=== PATIENT | female | born 1990 | race Caucasian/White ===

== ENCOUNTER 2024-04-14 06:34 | Day surgery (SDC) | payer OTHER ==
[2024-04-14 06:28] LABS: Sqamous Epithelial <5 /HPF (None Seen); Urine Bacteria 20-50 /HPF (<20); Urine Bilirubin NEGATIVE (Negative); Urine Blood Negative (Negative); Urine Clarity Turbid (Clear); Urine Color Yellow (Yellow); Urine Culture Reflex Order REFLEXED; Urine Glucose NEGATIVE (Negative); Urine Ketones NEGATIVE (Negative); Urine Microscopic Reflex YN ORDER UMIC; Urine Mucus 4+ /HPF (None Seen); Urine Nitrite NEGATIVE (Negative); Urine Protein TRACE (Negative); Urine RBC <5 /HPF (None Seen); Urine Urobilinogen Normal (Normal)
[2024-04-14] MEDS ORDERED: Ringers Lactate 1,000 ML IV ONE (06:35)
[2024-04-14 06:44] LABS: Absolute Eosinophils 0.1 K/uL (0-0.5); Absolute Monocytes 0.4 K/uL (0.1-1.3); Absolute Neutrophil 2.7 K/uL (1.8-8.0); Basophils % 0.5 % (0-1.3); Eosinophils % 1.6 % (0-4.4); Hematocrit 37.5 % (36.0-45.0); Hemoglobin 12.9 g/dL (12.0-15.0); MCH 32.9 pg (27.0-35.0); MCHC 34.4 g/dL (32.0-36.0); MCV 95.6 fL (80-100); MPV 8.7 fL (7.6-11.3); Monocytes % 7.3 % (3.3-12.3); Neutrophils % 51.6 % (41.7-73.7); Platelets 213 thou/uL (152-406); RBC Red Blood Cell Count 3.92 M/uL (3.86-4.86); Red Cell Distribution Width 12.8 % (12.1-15.2)
[2024-04-14] MEDS ORDERED: LIDOCAINE 1% MPF 5 ML VIAL ONE (06:45)
[2024-04-14] MEDS ORDERED: ONDANSETRON 4 MG/2 ML VIAL ONE (06:45)
[2024-04-14] MEDS ORDERED: KETAMINE HCL IN 0.9 % NACL 50 MG/5 ML SYRINGE IV ONE (06:45)
[2024-04-14] MEDS ORDERED: dexAMETHasone 10 MG/ML VIAL ONE (06:45)
[2024-04-14] MEDS ORDERED: FENTANYL CITR 250 MCG/5 ML ONE (06:46)
[2024-04-14] MEDS ORDERED: MIDAZOLAM HCL 2 MG/2 ML INJ ONE (06:46)
[2024-04-14] MEDS ORDERED: propofoL 200 MG/20 ML VIAL IV ONE (06:46)
[2024-04-14] MEDS ORDERED: ROCURONIUM 50 MG/5 ML VIAL IV ONE (06:46)
[2024-04-14] MEDS ORDERED: NA CHLORIDE 0.9% 100 ML ONE (07:01)
[2024-04-14] MEDS: CEFAZOLIN SODIUM 1 GM/VIAL ONE (07:55)
[2024-04-14] MEDS: BUPIVACAINE 0.25% PF 30 ML VIAL ONE (07:58)
[2024-04-14] MEDS ORDERED: GLYCOPYRROLATE 0.2 MG/ML SYR ONE (08:08)
[2024-04-14] MEDS: Ringers Lactate 1,000 ML IV ONE (08:30)
[2024-04-14] MEDS: VASOPRESSIN 20 UNIT/ML VIAL ONE (08:35)
[2024-04-14] MEDS ORDERED: KETOROLAC 30 MG/ML INJ ONE (09:54)
[2024-04-14] MEDS ORDERED: Mastisol Adhesive Liq ONE (10:15)
[2024-04-14] MEDS: HYDROMORPHONE HCL 1 MG/ML INJ ONE ×2 (11:04→11:16)
[2024-04-14] MEDS ORDERED: PROMETHAZINE INJ 25 MG/ML AMP IV PRN (11:06)
[2024-04-14] MEDS ORDERED: IBUPROFEN 200 MG TAB PO PRN (11:06)
[2024-04-14] MEDS ORDERED: MEPERIDINE HCL 25 MG/ML SYR IM PRN (11:06)
[2024-04-14] MEDS: ONDANSETRON 4 MG/2 ML VIAL ONE (11:11)
--- NOTE | 2024-04-14 11:16 | P.BOP ---
Preoperative diagnosis: AUB-L/O, Dysmenorrhea, Pelvic pain Postoperative diagnosis: same, 6-7cm leiomyoma intramural, Endometriosis bilat eral lateral reynoso Primary procedure: Diag Hystsc,Endometrial ablation/ Lapsc Myomectomy,b/l salpingectomy Secondary procedure: Endometriosis fulguration, Left ovarian cyst drainage Makeup Sales Consultant: Faby Eason Estimated blood loss: 50 Specimen: tubes/ myoma Findings: ant wall 6-7cm intramural myoma/ endo b/l lat reynoso;L6.5/W4.7/P168/T42sec Complications: None Transferred to: Recovery Room Condition: Good
[2024-04-14] MEDS ORDERED: HYDROCODONE/APAP 5/325 MG TAB ONE (11:53)
[2024-04-14] MEDS: HYDROCODONE/APAP 5/325 MG TAB PO PRN (11:55)
[2024-04-14] MEDS ORDERED: IBUPROFEN 200 MG TAB PO ONE (13:15)
[2024-04-14] MEDS: IBUPROFEN 400 MG TAB ONE (13:15)
[2024-04-14] MEDS ORDERED: HOME MED 1 EA UNK (Dextroamphetamine/Amphetamine [Adderall 20 Mg Tablet] 20 MG Tablet) PO SCH (14:00)
[2024-04-15 02:45] VITALS: BP 125/66; TEMP 98.2; O2SAT 100
--- NOTE | 2024-04-29 01:50 | OP ---
Date of Procedure: 04/14/2024 Surgeon: Ana Jones MD Commission Agent Livestock: Faby Herr. Preoperative Diagnoses: Menorrhagia (abnormal uterine bleeding-L/O), dysmenorrhea, pelvic pain. Postoperative Diagnoses: Menorrhagia (abnormal uterine bleeding-L/O), dysmenorrhea, pelvic pain, and endometriosis of the bilateral lateral reynoso, 6-7 cm leiomyoma that is intramural on the anterior wa ll, and umbilical hernia. Procedures Performed: 1. Diagnostic hysteroscopy, endometrial ablation with NovaSure. 2. Diagnostic laparoscopy, bilateral salpingectomy. 3. Laparoscopic myomectomy. 4. Endometriosis fulguration, laparoscopic. 5. Left ovarian cyst drainage. 6. Umbilical hernia repair. Anesthesia: General endotracheal. Estimated Blood Loss: 50. Specimens: Bilateral tubes and leiomyoma, which is a complex leiomyoma with several compound myomata within it. Findings: Anterior wall 6-7 cm intramural leiomyoma or leiomyomata, endometriosis on the bilateral l ateral reynoso, and endometrial ablation settings, length of the cavity 6.5 cm, width is 4.7 cm, power of 168 early and time of 42 seconds. The uterine wall was repaired in 3 layers. Complications: There were no complications. Disposition: Transferred to the recovery room in stable condition. Indications: The patient is a 33-year-old female presented with heavy bleeding, significant pelvic p ain, and dysmenorrhea. On transvaginal ultrasound, she was found to have fibroids. Then, we perform ed an endometrial sampling procedure, which was negative for atypia or malignancy. The patient had c ompleted childbearing and desired no future fertility. So, discussed about all the different options of medical treatment with GnRH antagonist, control pills, and depot medroxyprogesterone likely not effective for this patient. IUD was discussed as well, but given the size of the endometrial ca nal, this was not feasible for the IUD that is too long. Then, we discussed the options surgically o f a different combination of things, the most important one was a laparoscopic myomectomy with or wit hout an endometrial ablation and we also discussed about bilateral salpingectomy for decrease of pain and for treatment of endometriosis. The patient consented for the surgical procedure and understood the permanency of endometrial ablation on her future fertility chances. This would be contraindicat ed and that she was very sure that she wants to proceed with an ablation with permanent disablement o f carrying due to her bleeding. Description Of Procedure: After informed consent was verified, she was taken back to the OR. 2 g of Ancef were given. SCDs were placed. Abdomen was prepped with ChloraPrep and vulva, vagina, and per ineum with Betadine. After general anesthesia was given, she was placed in a dorsal lithotomy positi on and arms were tucked by the side, positioning was checked. She was grounded. Time-out was done a nd then draped in a sterile fashion. Endometrial ablation: Speculum was placed to expose the cervix . Anterior lip was grasped with a single-tooth tenaculum. Cervix was dilated to 16-Slovenian and diagn ostic hysteroscopy was first performed in order to measure the cavity. The sounding length was 12 cm and cervical length was 5.5, so a calculated length of 6.5 cm was entered into the generator and aft er the scope was removed, the endometrial ablation device was primed and inserted into the uterine ca vity and deployed without any problems. The cavity width was assessed at 4.7 cm and then once the ce rvical os was plugged with the occluder, cavity integrity test passed promptly. Then, ablation cycle was started and completed in 42 seconds without any interruption. The device was undeployed, hyster oscopy was performed to rinse the cavity. There was an excellent endometrial ablation effect in the entire global endometrium. The scope was then removed and the uterine manipulator introduced and sec ured in place and all other instruments were removed. Mcleod was placed to drain the bladder and alistair ched to a drainage bag to gravity and this area was draped. A 1 cm supraumbilical incision was made with a scalpel using open laparoscopy technique. Fascia was incised, tagged with 0 Vicryl sutures. Peritoneum was entered sharply. Julia introduced and after adequate insufflation, other trocars were placed. There were two 5 ports on left and right lower lopez drants. A left upper quadrant 5 port was also placed and a 10 and 11 suprapubic ports were placed un anita direct vision. The patient was placed in significant Trendelenburg and after inspection, there w ere endometriosis implants that were very minimal in bilateral lateral reynoso and the fibroid was seen in the anterior wall. Endometriosis fulguration: Bipolar cautery, forceps were used to fulgurate the endometrial lesions a fter there were picked off the peritoneum and cauterized perfectly on both sides. This completed the endometriosis treatment. Bilateral salpingectomy: The tubes were removed with the help of LigaSure starting at the fimbriated end and taking them completely out at the cornual end with the same device. So, both of these speci mens were retrieved and handed off for permanent pathology. Myomectomy: Dilute vasopressin 20 units in 20 cc of normal saline was taken and injected on the ante rior wall. 20 mL was injected all along the site of the myoma where the incision would be made and a was taken and through the muscle layers of the uterus, incision was carried down to the l evel of the fibroid. Once I came to the sheath of the myoma, the cavity could be identified around i t. A single-tooth tenaculum was then placed and gradually the myoma was dissected and peeled off and completely excised. There were several small leiomyomata that had to be removed alongside these and they were all removed in total and left in the left lower quadrant. Then, cauterization with the bi polar curved tip device was done to get good hemostasis. Then, the cavity was closed and I did not e nter the endometrial cavity. The cavity of the fibroid was closed in 3 layers with the help of 2-0 V -Loc sutures in 2 layers and a 3-0 V-Loc suture on the top in a continuous running fashion. There wa s excellent hemostasis and very good apposition without any exposure of the myometrium. Thorough irrigation suction was performed and there was good hemostasis in all sites. Left ovarian cyst was present, which was incised with the monopolar scissors and drained. There was no need for removal of the cyst as this appeared to be a physiologic cyst. The trocars were removed under direct vision after the was placed in an EndoCatch bag that was brought in through t he suprapubic site. Once all the gas was desufflated, trocars were removed. Umbilical hernia closure was then done. Umbilical hernia repair: Once I was going through the umbilical area where I incised the fascia, the re was a significant defect and so the defect was dissected by extending the incision on the fascia s uperiorly and inferiorly and finding out the entire defect. It was at least 1 cm defect making sure that the were placed on all the healthy edges of the fascia. The hernia sac was dissected and it was excised along with the content and handed out. It was not sent for pathology. Then, the umbilical hernia site was closed in sequence of 4 sutures using 0 PDS. 4 simple sutures were placed and they were tied down with excellent closure and the umbilical area was undisturbed in terms of ho w it was to the base. Then, subcutaneous tissues were closed with the help of 2-0 Vicryl s utures and all skin incisions were closed with interrupted 4-0 Monocryl. Mini-laparotomy was performed in the suprapubic area trocar site. The trocar was removed. Then, the scalpel was used to make a skin incision. Subcutaneous tissues and fascia incised with a Bovie. Th en, muscles of recti were taken down from the attachments to the fascia using the Bovie both inferior ly and superiorly. Then, the recti were and the incision extended on the peritoneum and my yaima retrieved by morcellation minimally and the entire specimen was removed intact. The peritoneum w as closed with the help of 3-0 Vicryl in a continuous running fashion. Zero chromic was used to brin g the recti together with 2 interrupted sutures and continuous running 0 Vicryl for the fascia, inter rupted 3-0 chromic for the subcutaneous tissues and after good irrigation and hemostasis, skin was cl osed with continuous running 4-0 Monocryl. Steri-Strips were placed, gauze were placed, and local in jection with 0.25% bupivacaine and epinephrine was done, 40 mL used in total and then uterine manipul ator and Mcleod were removed. Instrument, needle, and sponge counts were correct at the end of the ca se. The patient tolerated the procedure well. She was recovered from anesthesia and taken to PACU i n stable condition. The family was debriefed about her findings and her procedures and she will have a 1 week and 3-month appointments. ROMEO/KLAUS Voice ID: [id number] Report ID: [id number]
== END 2024-04-14 13:25 | disposition home or self-care (01) ==
LOC: OR 06:34
PROVIDERS: ATTEND Obstetrics & Gynecology
PROC: 0UT74ZZ Resection of Bilateral Fallopian Tubes, Percutaneous Endoscopic Approach (ICD-10-PCS; 2024-04-14)
PROC: 0U594ZZ Destruction of Uterus, Percutaneous Endoscopic Approach (ICD-10-PCS; 2024-04-14)
PROC: 0UB94ZZ Excision of Uterus, Percutaneous Endoscopic Approach (ICD-10-PCS; 2024-04-14)
PROC: 0U914ZZ Drainage of Left Ovary, Percutaneous Endoscopic Approach (ICD-10-PCS; 2024-04-14)
PROC: 0WQF0ZZ Repair Abdominal Wall, Open Approach (ICD-10-PCS; 2024-04-14)
PROC: 0UB90ZZ Excision of Uterus, Open Approach (ICD-10-PCS; 2024-04-14)
PROC: 0U5B8ZZ Destruction of Endometrium, Via Natural or Artificial Opening Endoscopic (ICD-10-PCS; principal; 2024-04-14 07:00)
DX: N92.1 Excessive and frequent menstruation with irregular cycle (principal); N94.6 Dysmenorrhea, unspecified; R10.2 Pelvic and perineal pain; D25.1 Intramural leiomyoma of uterus; K42.9 Umbilical hernia without obstruction or gangrene; N80.C19 Endometriosis of the anterior abdominal wall, unspecified depth
CPT/HCPCS: 36415; 81001; 81025; 85025; 86850; 86900; 86901; 87086; 87088; 88302; 88305; A4314; J0690; J1100; J1171; J2003; J2250; J2405; J2704; J3010; J7120